=== PATIENT | male | born 1995 | race Hispanic/Latino ===

== ENCOUNTER 2017-04-24 19:36 | Emergency (ER) | payer OTHER ==
[2017-04-24 20:34] VITALS: BP 134/68; PULSE 67; RESP 16; TEMP 97.1; O2SAT 100
--- NOTE | 2017-04-24 20:58 | ED PDOC ---
HPI: Skin/Bite Injury Time Seen by Provider: 04/24/17 20:36 Chief Complaint (Nursing): Abnormal Skin Integrity Chief Complaint (Provider): Forehead laceration History Per: Patient History/Exam Limitations: no limitations Onset/Duration Of Symptoms: Hrs (2) Current Symptoms Are (Timing): Still Present Location Of Injury: Left: Head, Anterior: Head Additional History Per: Patient Additional Complaint(s): 22yo male, presents to ED for evaluation of laceration to his left eyebrow, sustained an hour [employer] when he was playing basketball. patient states another individual elbowed him in the face, resulting in the laceration. He denies any dizziness, loss of consciousness, vision changes. Patient states his tetanus is up to date and offers no additional medical complaints. Past Medical History Reviewed: Historical Data, Nursing Documentation, Vital Signs Vital Signs: Last Vital Signs Temp 97.1 F L 04/24/17 20:31 Pulse 67 04/24/17 20:31 Resp 16 04/24/17 20:31 BP 134/68 04/24/17 20:31 Pulse Ox 100 04/24/17 21:25 - Medical History PMH: No Chronic Diseases Denies: Chronic Kidney Disease - Surgical History Surgical History: No Surg Hx - Family History Family History: States: No Known Family Hx - Allergies Allergies/Adverse Reactions: Allergies Allergy/AdvReac Type Severity Reaction Status Date / Time No Known Allergies Allergy Verified 04/24/17 20:30 Review of Systems Eyes: Negative for: Vision Change Skin: Positive for: Other (laceration to left eyebrow) Neurological: Negative for: Dizziness Physical Exam - Reviewed Nursing Documentation Reviewed: Yes Vital Signs Reviewed: Yes - Physical Exam Appears: Positive for: No Acute Distress Head Exam: Positive for: NORMAL INSPECTION, NORMOCEPHALIC. Negative for: ATRAUMATIC (2 inch laceration to medial aspect of left eyebrow) Eye Exam: Positive for: EOMI, PERRL Neck: Positive for: Supple Neurologic/Psych: Positive for: Alert, Oriented. Negative for: Motor/Sensory Deficits - ECG O2 Sat by Pulse Oximetry: 100 (RA) Pulse Ox Interpretation: Normal Medical Decision Making Medical Decision Making: Time: 2039 Impression: Laceration repair Plan: -- Lidocaine 1% -- See procedure note for laceration repair Reassess Time: 2122 Patient tolerated procedure well. Pt informed to keep the wound clean and dry and to return to the ED or visit his PCP in 7 days for suture removal. Stable for discharge home. Scribe Attestation: Documented by Annamarie Mazariegos acting as a scribe for YANIRA Singh Provider Attestation: All medical record entries made by the Scribe were at my direction and personally dictated by me. I have reviewed the chart and agree that the record accurately reflects my personal performance of the history, physical exam, medical decision making, and the department course for this patient. I have also personally directed, reviewed, and agree with the discharge instructions and disposition. Disposition - Clinical Impression Clinical Impression: Laceration - Patient ED Disposition Is Patient to be Admitted: No Counseled Patient/Family Regarding: Studies Performed, Diagnosis, Need For Followup - Disposition Disposition: Routine/Home Disposition Time: 21:23 Condition: STABLE Additional Instructions: keep wound wet remove sutures in 7days Instructions: Care For Your Stitches (ED), Laceration (ED) Forms: [employer] (S[place]i) Procedure: Wound Repair - Time Performed Time Performed: 21:00 - Time Out Time Out: Side verified, Site verified, Patient ID confirmed - Consent Obtained Consent obtained: Verbal - Performed by Performed by: Mid-level Provider - Indications Indication(s):: Laceration - Location Location:: Left, Medial, Eyebrow Shape:: Linear Dimensions Length cm: 5 - Anesthetic Technique Anesthetic Technique: Local Local/Regional Anesthetic:: Lidocaine 1% (3cc's) - Debris Debris:: None - Irrigated Irrigated with ml of normal saline: 20 - Complexity Complexity:: Simple (one layer) - Wound repair method Sutures:: # (10), Size (5:0), Type (proline), Technique (simple interruped) - Patient tolerated procedure Patient Tolerated Procedure:: Well
== END 2017-04-24 21:53 | disposition home or self-care (01) ==
LOC: H.ER 19:36
DX: S01.81XA Laceration without foreign body of other part of head, initial encounter (principal); W22.8XXA Striking against or struck by other objects, initial encounter; Y92.310 Basketball court as the place of occurrence of the external cause